=== PATIENT | female | born 1960 | race Caucasian/White ===

== ENCOUNTER 2021-07-24 04:30 | Day surgery (SDC) | payer OTHER ==
[2021-07-23 18:02] VITALS: BMI 24.4
[2021-07-24] MEDS ORDERED: LIDOCAINE HCL 1%, 10 MG/ML (20ML VIAL) ONE (09:53)
[2021-07-24] MEDS ORDERED: PROPOFOL 20 ML ONE (10:10)
[2021-07-24] MEDS ORDERED: MIDAZOLAM HCL 2 MG/2 ML SINGLE DOSE VIAL ONE (10:10)
[2021-07-24] MEDS ORDERED: LIDOCAINE HCL 2% JELLY 10 ML CARTRIDGE ONE (10:20)
[2021-07-24] MEDS ORDERED: IBUPROFEN 400 MG TABLET (FP) PO PRN (11:40)
[2021-07-24] MEDS ORDERED: ACETAMINOPHEN 1000 MG/100 ML VIAL (NON FORMULARY) IVPB ONE (11:41)
[2021-07-24] MEDS ORDERED: ACETAMINOPHEN 325 MG TABLET (FP) PO PRN (12:00)
[2021-07-24] MEDS ORDERED: ONDANSETRON 4 MG/2 ML VIAL IVPUSH PRN (12:23)
[2021-07-24] MEDS ORDERED: LACTATED RINGERS SOLUTION 1,000 ML IV SCH (12:30)
[2021-07-24] MEDS ORDERED: ACETAMINOPHEN INJECTION 100 ML IVPB ONE (12:39)
[2021-07-24 15:57] VITALS: BP 152/73; PULSE 67; TEMP 97.4
== END 2021-07-24 14:35 | disposition home or self-care (01) ==
LOC: JASU-SURG 04:30
PROVIDERS: ATTEND Specialist
PROC: 0U5MXZZ Destruction of Vulva, External Approach (ICD-10-PCS; 2021-07-24)
PROC: 0UJH8ZZ Inspection of Vagina and Cul-de-sac, Via Natural or Artificial Opening Endoscopic (ICD-10-PCS; principal; 2021-07-24 10:00)
DX: A63.0 Anogenital (venereal) warts (principal)
CPT/HCPCS: 94760; J0131

== ENCOUNTER 2022-11-19 04:25 | Day surgery (SDC) | payer OTHER ==
[2022-11-18 15:19] VITALS: BMI 24.4
[2022-11-19] MEDS ORDERED: ACETAMINOPHEN INJECTION 100 ML IVPB ONE (11:29)
[2022-11-19] MEDS ORDERED: GABAPENTIN 300 MG CAPSULE ONE (11:29)
[2022-11-19] MEDS ORDERED: ceFAZolin SODIUM 1 GM VIAL ONE (11:30)
[2022-11-19] MEDS ORDERED: GABAPENTIN 300 MG CAPSULE PO ONE (11:45)
[2022-11-19] MEDS ORDERED: CEFAZOLIN SODIUM 2 GM in DEXTROSE 5%-WATER 100 ML IVPB ONE (11:45)
[2022-11-19] MEDS ORDERED: ACETAMINOPHEN 1000 MG/100 ML BAG IVPB ONE (11:45)
[2022-11-19] MEDS ORDERED: BUPIVACAINE HCL/PF 0.5% (5MG/ML) 10 ML VIAL ONE (12:29)
[2022-11-19] MEDS ORDERED: MIDAZOLAM HCL 2 MG/2 ML SINGLE DOSE VIAL ONE (12:45)
[2022-11-19] MEDS ORDERED: TRANEXAMIC ACID 1000 MG/10 ML VIAL IVPUSH ONE (12:45)
[2022-11-19] MEDS ORDERED: ceFAZolin SODIUM 1 GM VIAL IVPB ONE (12:55)
[2022-11-19] MEDS ORDERED: LIDOCAINE 1%/EPI 1:100000 (50 ML MULTI DOSE VIAL) INF ONE ×2 (13:15)
[2022-11-19] MEDS ORDERED: ROCURONIUM BROMIDE 50 MG/5 ML SYRINGE ONE (13:53)
[2022-11-19] MEDS ORDERED: PROPOFOL 20 ML ONE (14:10)
[2022-11-19] MEDS ORDERED: oxyCODONE HCL 5 MG TABLET PO PRN (15:47)
[2022-11-19] MEDS ORDERED: DOCUSATE SODIUM 100 MG CAPSULE (FP) PO PRN (15:47)
[2022-11-19] MEDS ORDERED: ONDANSETRON 4 MG/2 ML VIAL IVPUSH PRN ×2 (15:47→15:48)
[2022-11-19] MEDS ORDERED: BISACODYL 5 MG TABLET.DR (FP) PO PRN (15:47)
[2022-11-19] MEDS ORDERED: ZOLPIDEM TARTRATE 5 MG TABLET PO PRN (15:47)
[2022-11-19] MEDS: SODIUM CHLORIDE 1,000 ML IV SCH (17:57)
[2022-11-19] MEDS: KETOROLAC TROMETHAMINE 30 MG/1 ML VIAL IVPUSH PRN (17:58)
[2022-11-19] MEDS ORDERED: HYDROmorphone HCl 2 MG/ML VIAL IVPB ONE (19:45)
[2022-11-19] MEDS: SIMETHICONE 80 MG TAB.CHEW (FP) PO PRN (20:22)
[2022-11-19] MEDS: CEFAZOLIN 1 GM in DEXTROSE 5%-WATER - 50 ML IVPB SCH (20:22)
[2022-11-19] MEDS ORDERED: KETOROLAC TROMETHAMINE 30 MG/1 ML VIAL IVPUSH PRN (21:00)
[2022-11-19] MEDS ORDERED: ACETAMINOPHEN 1000 MG/100 ML BAG IVPB PRN (21:00)
[2022-11-20] MEDS: SIMETHICONE 80 MG TAB.CHEW (FP) PO PRN ×2 (02:04→12:09)
[2022-11-20] MEDS: CEFAZOLIN 1 GM in DEXTROSE 5%-WATER - 50 ML IVPB SCH (04:40)
[2022-11-20] MEDS: KETOROLAC TROMETHAMINE 30 MG/1 ML VIAL IVPUSH PRN (05:22)
[2022-11-20] MEDS ORDERED: ACETAMINOPHEN 325 MG TABLET (FP) PO ONE (05:45)
[2022-11-20] MEDS: SODIUM CHLORIDE 1,000 ML IV SCH (05:59)
[2022-11-20] MEDS ORDERED: LOSARTAN POTASSIUM 50 MG TABLET PO SCH (10:00)
[2022-11-20 10:10] LABS: HEMATOCRIT 35.9 % (32.4-45.2); HEMOGLOBIN 12.1 GM/dL (10.7-15.3); MCH 31.4 pg (25.7-33.7); MCHC 33.8 g/dl (32.0-36.0); MEAN PLT VOLUME 7.9 fl (7.5-11.1); PLATELET COUNT 252 10^3/uL (134-434); RBC 3.86 M/mm3 (3.60-5.2); RDW 13.8 % (11.6-15.6); WHITE BLOOD COUNT 9.1 K/mm3 (4.0-10.0)
[2022-11-20 13:05] VITALS: BP 150/97; PULSE 74; RESP 17; TEMP 98
== END 2022-11-20 13:20 | disposition home or self-care (01) ==
LOC: JASU-SURG 04:25 → JASUSAT 04:25 → J3W 17:31 → JASUSAT 11-20 13:20
PROVIDERS: ATTEND Specialist
PROC: 8E0W4CZ Robotic Assisted Procedure of Trunk Region, Percutaneous Endoscopic Approach (ICD-10-PCS; 2022-11-19)
PROC: 0UT9FZZ Resection of Uterus, Via Natural or Artificial Opening With Percutaneous Endoscopic Assistance (ICD-10-PCS; principal; 2022-11-19 12:45)
PROC: 0UT2FZZ Resection of Bilateral Ovaries, Via Natural or Artificial Opening With Percutaneous Endoscopic Assistance (ICD-10-PCS; 2022-11-19 12:45)
PROC: 0UB77ZZ Excision of Bilateral Fallopian Tubes, Via Natural or Artificial Opening (ICD-10-PCS; 2022-11-19 12:45)
DX: D25.9 Leiomyoma of uterus, unspecified (principal); N72 Inflammatory disease of cervix uteri; N73.6 Female pelvic peritoneal adhesions (postinfective)
CPT/HCPCS: 58552; S2900; 36415; 85027; 88305-TC; 94760